=== PATIENT | female | born 1970 | race Caucasian/White ===

== ENCOUNTER 2017-12-27 08:56 | Emergency (ER) | payer BC ==
[2017-12-27 09:00] VITALS: BP 144/92; PULSE 86; RESP 18; TEMP 98
--- NOTE | 2017-12-27 09:24 | XR ---
EXAMINATION TYPE: XR forearm RT , 2 VIEWS DATE OF EXAM ORDERED: 12/27/2017 HISTORY: Pain. COMPARISON: None. FINDINGS: No long bone fracture is seen. There is an ossific density just posterior to the mid carpa l row on the lateral projection. IMPRESSION: 1. NO ACUTE LUNG BONY INJURY. 2. PLEASE CORRELATE CLINICALLY TO EXCLUDE TRIQUETRAL FRACTURE.
--- NOTE | 2017-12-27 09:40 | ED ---
Upper Extremity HPI - General Chief Complaint: Extremity Injury, Upper Stated Complaint: Right Arm and Wrist Injury Time Seen by Provider: 12/27/17 09:02 Source: patient, RN notes reviewed Mode of arrival: ambulatory Limitations: no limitations - History of Present Illness Initial Comments: 47-year-old female presents emergency Department with a right forearm pain [place]. Patient states that she slipped on oil. Patient denies any head injury no loss conscious. Patient denies any prior injuries to her right hand or wrist. Patient states that she is right-hand dominant. Patient has pain with movement at this time. - Related Data Allergies Allergy/AdvReac Type Severity Reaction Status Date / Time Milk Containing Products Allergy Unknown Verified 12/27/17 09:00 [Dairy] Review of Systems ROS Statement: Those systems with pertinent positive or pertinent negative responses have been documented in the HPI. ROS Other: All systems not noted in ROS Statement are negative. Past Medical History Past Medical History: No Reported History History of Any Multi-Drug Resistant Organisms: None Reported Past Surgical History: Section, Tonsillectomy, Tubal Ligation Past Psychological History: No Psychological Hx Reported Smoking Status: Current every day smoker Past Alcohol Use History: Occasional Past Drug Use History: None Reported General Exam Limitations: no limitations General appearance: alert, in no apparent distress Head exam: Present: atraumatic, normocephalic, normal inspection Respiratory exam: Present: normal lung sounds bilaterally. Absent: respiratory distress, wheezes, rales, rhonchi, stridor Cardiovascular Exam: Present: regular rate, normal rhythm, normal heart sounds. Absent: systolic murmur, diastolic murmur, rubs, gallop, clicks Extremities exam: Present: other (Right arm there is tenderness in the right wrist the right elbow patient has pain with range of motion neurovascular intact no obvious deformity) Skin exam: Present: warm, dry, intact, normal color. Absent: rash Course Vital Signs 12/27/17 08:57 Temperature 98.0 F Pulse Rate 86 Respiratory 18 Rate Blood Pressure 144/92 O2 Sat by Pulse 98 Oximetry Procedures - Orthopedic Splinting/Casting Injury #1 Side: right Upper Extremity Injury Location: short arm, wrist Upper Extremity Immobilizer: volar splint, synthetic pre-padded splint Additional Comments: Neurovascular intact before and after Medical Decision Making - Medical Decision Making 47-year-old female presented emergency from for right arm injury. Patient slipped and fell she has possible right. Carpal fracture. She was splinted and follow up with orthopedics. Disposition Clinical Impression: Wrist fracture, right Disposition: HOME SELF-CARE Condition: Stable Instructions: Arm Fracture in Adults (ED) Additional Instructions: Please return to the Emergency Department if symptoms worsen or any other concerns. Referrals: Bandar Burgos MD [Primary Care Provider] - 1-2 days Juventino Moreira MD [Medical Doctor] - 1-2 days Time of Disposition: 09:39
== END 2017-12-27 09:56 | disposition home or self-care (01) ==
LOC: EC 08:56
DX: S62.101A Fracture of unspecified carpal bone, right wrist, initial encounter for closed fracture (principal); F17.200 Nicotine dependence, unspecified, uncomplicated; Z91.011 Allergy to milk products; W01.0XXA Fall on same level from slipping, tripping and stumbling without subsequent striking against object, initial encounter; Y93.54 Activity, bowling
CPT/HCPCS: 29125; 99283

== ENCOUNTER 2020-04-11 18:56 | Observation (INO) | payer BC ==
[2020-04-11] MEDS ORDERED: ASPIRIN 81 MG PO STA (19:16)
[2020-04-11] MEDS ORDERED: ONDANSETRON 4 MG/2 ML VIAL IVP STA (19:16)
--- NOTE | 2020-04-11 19:46 | ED ---
General Adult HPI - General Chief complaint: Dizziness Stated complaint: Chest pain Time Seen by Provider: 04/11/20 19:02 Source: patient Mode of arrival: wheelchair Limitations: no limitations - History of Present Illness Initial comments: 50-year-old female patient presents to the emergency department today for evaluation of dizziness, chest pain, and nausea. Patient states she's had symptoms since last evening. She did have one episode of vomiting yesterday. States she went to urgent care to get checked out today and they recommended she come in for further evaluation. Patient states that she does feel short of breath at rest. States whenever she takes a big deep breath she feels a sharp cramping pain to the left side of her chest. She denies any sweats with this. She does smoke cigarettes. Denies any history of high blood pressure, diabetes, high cholesterol. Denies family history of cardiac disease. She denies any abdominal pain, constipation, or diarrhea. Denies fever or chills. States she is experiencing nasal congestion and postnasal drip. Patient denies any recent rash, diarrhea, constipation, back pain, numbness, tingling, hematuria, dysuria, urinary urgency, urinary frequency, headache, visual changes, or any other complaints. - Related Data Home Medications Medication Instructions Recorded Confirmed No Known Home Medications 04/11/20 04/11/20 Allergies Allergy/AdvReac Type Severity Reaction Status Date / Time Milk Containing Products Allergy Unknown Verified 04/11/20 21:34 [Dairy] Review of Systems ROS Statement: Those systems with pertinent positive or pertinent negative responses have been documented in the HPI. ROS Other: All systems not noted in ROS Statement are negative. Past Medical History Past Medical History: No Reported History History of Any Multi-Drug Resistant Organisms: None Reported Past Surgical History: Section, Tonsillectomy, Tubal Ligation Past Psychological History: No Psychological Hx Reported Smoking Status: Current every day smoker Past Alcohol Use History: Occasional Past Drug Use History: None Reported General Exam Limitations: no limitations General appearance: alert, in no apparent distress, other (Physical well- developed, well-nourished adult female patient in no acute distress. Vital signs upon presentation are temperature 98.9F, pulse 96, respirations 18, blood pressure 108/66, pulse ox 98% on room air.) Eye exam: Present: normal appearance, PERRL, EOMI. Absent: scleral icterus, conjunctival injection, nystagmus, periorbital swelling ENT exam: Present: normal exam, normal oropharynx, mucous membranes moist Respiratory exam: Present: normal lung sounds bilaterally. Absent: respiratory distress, wheezes, rales, rhonchi, stridor Cardiovascular Exam: Present: regular rate, normal rhythm, normal heart sounds. Absent: systolic murmur, diastolic murmur, rubs, gallop, clicks GI/Abdominal exam: Present: soft, normal bowel sounds. Absent: distended, tenderness, guarding, rebound, rigid Neurological exam: Present: alert, oriented X3, CN II-XII intact Psychiatric exam: Present: normal affect, normal mood Skin exam: Present: warm, dry, intact, normal color. Absent: rash Course Vital Signs 04/11/20 04/11/20 18:58 21:12 Temperature 98.9 F Pulse Rate 96 84 Respiratory 18 16 Rate Blood Pressure 108/66 140/86 O2 Sat by Pulse 98 99 Oximetry EKG Findings - EKG Comments: EKG Findings:: EKG obtained in 1914 shows normal sinus rhythm with a ventricular rate of 83, PA interval 136, QRS duration 86, QT 386, QTc 453. No evidence of ST elevation or depression. Medical Decision Making - Medical Decision Making 50-year-old female patient presents to the emergency department today for evaluation of chest pain radiating down the left arm, shortness of breath, nausea, and dizziness. Physical examination reveal clear equal lung sounds. Pain is nonreproducible with palpation. EKG showed normal sinus rhythm. Initial troponin is negative. Patient will be admitted to the hospital for serial troponins, cardiac monitoring, and further evaluation by cardiology in the morning. She is agreeable this plan. - Lab Data Result diagrams: 04/11/20 19:49 04/11/20 19:49 Lab Results 04/11/20 04/11/20 04/11/20 Range/Units 19:49 19:49 19:49 WBC 12.8 H (3.8-10.6) k/uL RBC 5.43 H (3.80-5.40) m/uL Hgb 15.2 (11.4-16.0) gm/dL Hct 47.2 H (34.0-46.0) % MCV 86.9 (80.0-100.0) fL MCH 28.0 (25.0-35.0) pg MCHC 32.3 (31.0-37.0) g/dL RDW 14.0 (11.5-15.5) % Plt Count 294 (150-450) k/uL Neutrophils % 62 % Lymphocytes % 27 % Monocytes % 5 % Eosinophils % 4 % Basophils % 1 % Neutrophils # 7.9 H (1.3-7.7) k/uL Lymphocytes # 3.4 (1.0-4.8) k/uL Monocytes # 0.7 (0-1.0) k/uL Eosinophils # 0.5 (0-0.7) k/uL Basophils # 0.1 (0-0.2) k/uL PT 9.5 (9.0-12.0) sec INR 0.9 (<1.2) APTT 23.2 (22.0-30.0) sec D-Dimer 0.29 (<0.60) mg/L FEU Sodium 134 L (137-145) mmol/L Potassium 4.3 (3.5-5.1) mmol/L Chloride 107 (98-107) mmol/L Carbon Dioxide 20 L (22-30) mmol/L Anion Gap 7 mmol/L BUN 18 H (7-17) mg/dL Creatinine 0.97 (0.52-1.04) mg/dL Est GFR (CKD-EPI)AfAm 80 (>60 ml/min/1.73 sqM) Est GFR (CKD-EPI)NonAf 70 (>60 ml/min/1.73 sqM) Glucose 105 H (74-99) mg/dL Calcium 9.2 (8.4-10.2) mg/dL Magnesium 2.0 (1.6-2.3) mg/dL Total Bilirubin 0.4 (0.2-1.3) mg/dL AST 23 (14-36) U/L ALT 12 (4-34) U/L Alkaline Phosphatase 61 (38-126) U/L Troponin I (0.000-0.034) ng/mL NT-Pro-B Natriuret Pep pg/mL Total Protein 6.7 (6.3-8.2) g/dL Albumin 4.1 (3.5-5.0) g/dL Lipase 198 (23-300) U/L 04/11/20 04/11/20 Range/Units 19:49 19:49 WBC (3.8-10.6) k/uL RBC (3.80-5.40) m/uL Hgb (11.4-16.0) gm/dL Hct (34.0-46.0) % MCV (80.0-100.0) fL MCH (25.0-35.0) pg MCHC (31.0-37.0) g/dL RDW (11.5-15.5) % Plt Count (150-450) k/uL Neutrophils % % Lymphocytes % % Monocytes % % Eosinophils % % Basophils % % Neutrophils # (1.3-7.7) k/uL Lymphocytes # (1.0-4.8) k/uL Monocytes # (0-1.0) k/uL Eosinophils # (0-0.7) k/uL Basophils # (0-0.2) k/uL PT (9.0-12.0) sec INR (<1.2) APTT (22.0-30.0) sec D-Dimer (<0.60) mg/L FEU Sodium (137-145) mmol/L Potassium (3.5-5.1) mmol/L Chloride (98-107) mmol/L Carbon Dioxide (22-30) mmol/L Anion Gap mmol/L BUN (7-17) mg/dL Creatinine (0.52-1.04) mg/dL Est GFR (CKD-EPI)AfAm (>60 ml/min/1.73 sqM) Est GFR (CKD-EPI)NonAf (>60 ml/min/1.73 sqM) Glucose (74-99) mg/dL Calcium (8.4-10.2) mg/dL Magnesium (1.6-2.3) mg/dL Total Bilirubin (0.2-1.3) mg/dL AST (14-36) U/L ALT (4-34) U/L Alkaline Phosphatase (38-126) U/L Troponin I <0.012 (0.000-0.034) ng/mL NT-Pro-B Natriuret Pep 23 pg/mL Total Protein (6.3-8.2) g/dL Albumin (3.5-5.0) g/dL Lipase (23-300) U/L - Radiology Data Radiology results: report reviewed, image reviewed Two-view x-ray of the chest is obtained. Report was reviewed in its entirety. Impression by Dr. Guillen shows no acute cardiopulmonary process. Disposition Clinical Impression: Chest pain, Dyspnea Disposition: ADMITTED IP TO THIS [facility] Condition: Serious Decision to Admit Reason: Admit from EC Decision Date: 04/11/20 Decision Time: 21:08
[2020-04-11 20:04] LABS: Basophils # (A) 0.1 k/uL (0-0.2); Basophils % (A) 1 %; Eosinophils # (A) 0.5 k/uL (0-0.7); Eosinophils % (A) 4 %; HCT 47.2 % (34.0-46.0); HGB 15.2 gm/dL (11.4-16.0); Lymphocytes # (A) 3.4 k/uL (1.0-4.8); Lymphocytes % (A) 27 %; MCHC 32.3 g/dL (31.0-37.0); MCV 86.9 fL (80.0-100.0); Mean Platelet Volume 7.4; Monocytes # (A) 0.7 k/uL (0-1.0); Monocytes % (A) 5 %; Neutrophils # (A) 7.9 k/uL (1.3-7.7); Neutrophils % (A) 62 %; Platelet Count 294 k/uL (150-450); RBC 5.43 m/uL (3.80-5.40); WBC 12.8 k/uL (3.8-10.6)
--- NOTE | 2020-04-11 20:10 | XR ---
EXAMINATION TYPE: XR chest 2V DATE OF EXAM: 04/11/2020 COMPARISON: NONE HISTORY: Chest pain TECHNIQUE: Frontal and lateral views of the chest are obtained. FINDINGS: There is no focal air space opacity. No evidence for pneumothorax. No pleural effusion. The cardiac silhouette size is within normal limits. The osseous structures are grossly intact. IMPRESSION: 1. No acute cardiopulmonary process.
[2020-04-11 20:12] LABS: Albumin 4.1 g/dL (3.5-5.0); Calcium 9.2 mg/dL (8.4-10.2); Potassium 4.3 mmol/L (3.5-5.1); Total Bilirubin 0.4 mg/dL (0.2-1.3); Total Protein 6.7 g/dL (6.3-8.2)
[2020-04-11 20:22] LABS: D-Dimer 0.29 mg/L FEU (<0.60); INR 0.9 (<1.2); Partial Thromboplastin Time 23.2 sec (22.0-30.0); Prothrombin Time 9.5 sec (9.0-12.0)
[2020-04-11] MEDS ORDERED: NALOXONE 0.4 MG/ML 1 ML VIAL IV PRN (21:01)
[2020-04-12 02:29] VITALS: TEMP 98.2
[2020-04-12 08:37] VITALS: BP 111/71; PULSE 95; RESP 14
[2020-04-12] MEDS ORDERED: ASPIRIN 325 MG TAB PO SCH (09:00)
--- NOTE | 2020-04-12 09:18 | CONS ---
CONSULTATION Mrs. Frazier is a 50-year-old female with no prior cardiac history, does not follow with a physician, who presented with symptoms of chest discomfort. The discomfort started on the left side of the chest radiating to the middle of the chest, into the left arm and had some respirophasic pattern to it and with that she felt dyspneic. She came into the emergency room and was subsequently admitted. The patient has no prior cardiac history. She is average in exercise tolerance. Has no exertional chest pain or significant dyspnea. She denies any dizziness or palpitation. She has no PND, orthopnea, or peripheral edema. She has no history of hypertension, hyperlipidemia, or documented diabetes. She smokes about a half a pack a day. MEDICATION: At home are none. REVIEW OF SYSTEMS: RESPIRATORY SYSTEM: She has occasional cough and wheezing. No recent fever. GI SYSTEM: She had vomiting on Thursday. No GI bleeding. SYSTEM: No dysuria or hematuria. NERVOUS SYSTEM: No stroke or seizure. PHYSICAL EXAMINATION: She is a 50-year-old female, alert, oriented, in no apparent distress. Blood pressure 133/70 with a heart in 90s. HEAD: Normocephalic. Eyes sclerae nonicteric. NECK: Good upstroke, no bruit, no jugular venous distention. LUNGS: Clear to auscultation. HEART: Regular rate and rhythm S1, S2. No S3. No S4. No murmur or rub. ABDOMEN: Soft, nontender, positive bowel sounds, no organomegaly. EXTREMITIES: No edema. Intact pulses. X-RAY: EKG sinus mechanism, normal axis and intervals. Normal echocardiogram. Chest x-ray shows no acute infiltrate. LABORATORY DATA: Her troponin less than 0.012 for 3 samples. BUN and creatinine 18 and 0.97. Potassium 4.3, hemoglobin of 15.2, white blood cell of 12.8. IMPRESSION: 1. Chest discomfort has atypical features for ischemic heart disease, probably noncardiac in etiology. 2. History of chronic tobacco use. RECOMMENDATION: I would recommend to proceed with an echocardiogram and a stress echocardiogram to assess her status and guide her treatment. Depending on the results of testing, further recommendation will be made. Thank you for this consult. We will follow with you. MMODL / IJN: [id number] /
--- NOTE | 2020-04-12 11:42 | ECHOF ---
Referral Reason:Chest pain; shortness of breath MEASUREMENTS -------- HEIGHT: 170.2 cm WEIGHT: 97.5 kg BP: 133/77 RVIDd: 3.2 cm (< 3.3) IVSd: 1.3 cm (0.6 - 1.1) LVIDd: 4.2 cm (3.9 - 5.3) LVPWd: 1.2 cm (0.6 - 1.1) IVSs: 1.8 cm LVIDs: 2.2 cm LVPWs: 1.6 cm LA Diam: 3.4 cm (2.7 - 3.8) LAESV Index (A-L): 25.12 ml/m Ao Diam: 3.0 cm (2.0 - 3.7) AV Cusp: 1.8 cm (1.5 - 2.6) MV EXCURSION: 19.436 mm (> 18.000) MV EF SLOPE: 60 mm/s (70 - 150) EPSS: 1.4 cm MV E Berhane: 0.91 m/s MV DecT: 207 ms MV A Berhane: 0.74 m/s MV E/A Ratio: 1.23 RAP: 5.00 mmHg RVSP: 23.64 mmHg FINDINGS -------- Sinus rhythm. This was a technically adequate study. The left ventricular size is normal. There is mild concentric left ventricular hypertrophy. Overa ll left ventricular systolic function is normal with, an EF between 55 - 60 %. The right ventricle is normal in size. Normal LA size by volume 22+/-6 ml/m2. The right atrial size is normal. Interatrial and interventricular septum intact. The aortic valve is trileaflet, and appears structurally normal. No aortic stenosis or regurgitation. The mitral valve is normal. There is trace mitral regurgitation. Mild tricuspid regurgitation present. Right ventricular systolic pressure is normal at < 35 mmHg. The pulmonic valve was not well visualized. There is no pulmonic regurgitation present. The aortic root size is normal. Normal inferior vena cava with normal inspiratory collapse consistent with estimated right atrial pre ssure of 5 mmHg. There is no pericardial effusion. CONCLUSIONS -------- 1. There is mild concentric left ventricular hypertrophy. 2. Overall left ventricular systolic function is normal with, an EF between 55 - 60 %. 3. Normal LA size by volume 22+/-6 ml/m2. 4. The aortic valve is trileaflet, and appears structurally normal. No aortic stenosis or regurgitati on. 5. There is trace mitral regurgitation. 6. Mild tricuspid regurgitation present. 7. There is no pericardial effusion. PLANT ANATOMY TEACHER: Honey Low RDCS
[2020-04-12 13:07] LABS: HCT 44.8 % (34.0-46.0); HGB 14.5 gm/dL (11.4-16.0); MCH 28.1 pg (25.0-35.0); MCHC 32.3 g/dL (31.0-37.0); Mean Platelet Volume 7.4; Platelet Count 270 k/uL (150-450); RBC 5.14 m/uL (3.80-5.40); RDW 14.1 % (11.5-15.5); WBC 10.9 k/uL (3.8-10.6)
--- NOTE | 2020-04-12 13:18 | ECHOS ---
STRESS ECHOCARDIOGRAM AGE: 50 SEX: F HT: 67 WT: 215 PROTOCOL: Stress Echo STAGE: 4 DURATION OF EXERCISE: 10.7 HEART RATE REST: 70 BLOOD PRESSURE REST: 82/51 MAXIMUM HEART RATE ACHIEVED: 162 MAXIMUM BLOOD PRESSURE: 189/40 85% MPHR: 146 100% MPHR: 172 METS: 10.7 INDICATIONS: CLINICAL INFORMATION: Baseline rhythm is a sinus mechanism, rate of 70, normal axis and intervals. Normal electrocardiogram. Baseline blood pressure 82/51 mmHg. The patient exercised on a Leonard protocol for 9 minute 34 seconds achieving peak rate of 162 beats per minute which is equal to 94% of maximum predicted heart rate. Peak blood pressure 189/40 mmHg. Test was terminated due to significant fatigue. The patient had shoulder discomfort. Electrocardiograph monitoring revealed no evidence of diagnostic ischemic ST deviation. FINDINGS: Baseline echocardiogram revealed normal wall thickness and motion. At peak exercise, there was normal wall motion augmentation with no hypokinesis or dyskinesis. CONCLUSION: 1. Average exercise tolerance with normal electrocardiographic response to exercise. 2. Shoulder discomfort of unclear etiology. 3. Normal stress echocardiogram with no evidence of stress induced ischemia. MMODL / IJN: [id number] /
--- NOTE | 2020-04-12 13:19 | P.HPIM ---
History of Present Illness Please consider this note as combined H&P and discharge summary Diagnoses: Chest pain, cardiac causes has been ruled out with negative stress test. Negative d-dimer. Resolved Nicotine dependence Mild leukocytosis, mostly reactive, trending down, no signs symptoms of infection. No need for antibiotics Hospital course This is a pleasant 50 years old female with no significant past medical history.SHe does not follow with PCP. Presents because of chest pain. This is a patient started having left arm pain associated with left-sided chest pain below her left breast, was significantly severe as per patient associated with some dyspnea felt like current with no associated nausea vomiting or sweating. The chest. Discontinue so this morning and she has some dull mild ache in her left arm with no restriction of movement, no muscular weakness or numbness. No change in urine or bowel habits. No fever. No coughing. No dizziness and gait is normal she smokes about half pack per day, no alcohol or illicit drugs. Patient is counseled about quitting smoking and she does not want to Vital signs stable. Labs showing mild leukocytosis of 12.8 K, risks of CBC and BMP is unremarkable, d-dimer is negative at 0.09. Serial troponins are negative. Less than 0.012. Echocardiogram showed ejection fraction of 55-60% with mild LVH and no significant myocardial of valve DISEASE. Chest x-ray: No acute process Topper Press Operator evaluated the patient and recommended a stress echo which is negative as per primary results per costume seamstress. Patient chest pain has resolved, she denies any other symptoms, no dyspnea, nausea vomiting, no change in urine or bowel habits, no abdominal pain, no fever Patient is cleared for discharge by costume seamstress Problems and management plan were discussed with the patient and he verbalized understanding and acceptance Patient was found stable and can be discharged home however he needs follow-up as an outpatient. Patient was instructed to follow up with PCP within one week and patient agrees. Her sister recommended Dr. Durant for her to follow up with as her new primary care doctor, patient wants to Make her own appointment within 1 week. Also patient was instructed to follow up with costume seamstress Dr. Alvarado in 2 weeks and she wants to make her on appointment as well Review of systems CONSTITUTIONAL: No fever, no malaise, no fatigue. HEENT: No recent visual problems or hearing problems. Denied any sore throat. CARDIOVASCULAR: No orthopnea, PND, no palpitations, no syncope. PULMONARY: No shortness of breath, no cough, no hemoptysis. GASTROINTESTINAL: No diarrhea, no nausea, no vomiting, no abdominal pain. Normoactive bowel sounds. NEUROLOGICAL: No headaches, no weakness, no numbness. HEMATOLOGICAL: Denies any bleeding or petechiae. GENITOURINARY: Denies any burning micturition, frequency, or urgency. MUSCULOSKELETAL/RHEUMATOLOGICAL: Denies any joint pain, swelling, or any muscle pain. ENDOCRINE: Denies any polyuria or polydipsia. Physical exam Gen: patient is a AAOx3, no distress CVS: S1-S2, RRR, no murmur Lungs: B/L CTA, no wheezing Abdomen: soft, no distention, no tenderness, positive bowel sounds Extremity: no leg edema or induration Time spent more than 35 minutes Past Medical History Past Medical History: No Reported History History of Any Multi-Drug Resistant Organisms: None Reported Past Surgical History: Section, Tonsillectomy, Tubal Ligation Past Anesthesia/Blood Transfusion Reactions: No Reported Reaction Past Psychological History: No Psychological Hx Reported Smoking Status: Current every day smoker Past Alcohol Use History: Occasional Past Drug Use History: None Reported - Past Family History Mother Family Medical History: Hypertension, Memory Impairment Father Family Medical History: Cancer Additional Family Medical History / Comment(s): of lung cancer at the age of 60 Medications and Allergies Home Medications Medication Instructions Recorded Confirmed Type No Known Home Medications 04/11/20 04/11/20 History Allergies Allergy/AdvReac Type Severity Reaction Status Date / Time Milk Containing Products Allergy Unknown Verified 04/11/20 21:34 [Dairy] Physical Exam Vitals: Vital Signs Temp Pulse Pulse Resp BP BP Pulse Ox 04/12/20 08:39 95 14 04/12/20 08:15 98.2 F 95 14 111/71 95 04/12/20 03:00 98.2 F 93 18 133/77 95 04/12/20 00:00 98.2 F 95 18 117/71 95 04/11/20 21:12 84 16 140/86 99 04/11/20 18:58 98.9 F 96 18 108/66 98 Intake and Output 04/11/20 04/12/20 04/12/20 22:59 06:59 14:59 Other: Voiding Method Toilet Toilet Weight 97.522 kg 97.522 kg GENERAL: The patient is alert and oriented x3, not in any acute distress. Well developed, well nourished. HEENT: Pupils are round and equally reacting to light. EOMI. No scleral icterus. No conjunctival pallor. Normocephalic, atraumatic. No pharyngeal erythema. No thyromegaly. CARDIOVASCULAR: S1 and S2 present. No murmurs, rubs, or gallops. PULMONARY: Chest is clear to auscultation, no wheezing or crackles. ABDOMEN: Soft, nontender, nondistended, normoactive bowel sounds. No palpable organomegaly. MUSCULOSKELETAL: No joint swelling or deformity. EXTREMITIES: No cyanosis, clubbing, or pedal edema. NEUROLOGICAL: Gross neurological examination did not reveal any focal deficits. SKIN: No rashes. No petechiae Results CBC & Chem 7: 04/12/20 12:44 04/11/20 19:49 Labs: Abnormal Lab Results - Last 24 Hours (Table) 04/11/20 04/11/20 Range/Units 19:49 19:49 WBC 12.8 H (3.8-10.6) k/uL RBC 5.43 H (3.80-5.40) m/uL Hct 47.2 H (34.0-46.0) % Neutrophils # 7.9 H (1.3-7.7) k/uL Sodium 134 L (137-145) mmol/L Carbon Dioxide 20 L (22-30) mmol/L BUN 18 H (7-17) mg/dL Glucose 105 H (74-99) mg/dL Thrombosis Risk Factor Assmnt - Choose All That Apply Any of the Below Risk Factors Present?: Yes Each Factor Represents 1 point: Age 41-60 years Thrombosis Risk Factor Assessment Total Risk Factor Score: 1 Thrombosis Risk Factor Assessment Level: Low Risk
== END 2020-04-12 14:21 | disposition home or self-care (01) ==
LOC: EC 18:56 → 3NCARDOBS 20:46
PROVIDERS: ADMIT Hospitalist; ATTEND Hospitalist
DX: R07.89 Other chest pain (principal); Z91.011 Allergy to milk products; F17.210 Nicotine dependence, cigarettes, uncomplicated; Z80.1 Family history of malignant neoplasm of trachea, bronchus and lung; Z82.49 Family history of ischemic heart disease and other diseases of the circulatory system; D72.829 Elevated white blood cell count, unspecified
CPT/HCPCS: 96374; 99285; 36415; 93005; 93306; 93351; 85379; 83880; 80053; 83690; 83735; 84484 ×2; 85025; 85027; 85610; 85730; 71046; G0378 ×2; J2405

== ENCOUNTER → 2024-06-29 | Outpatient (CLI) | payer BC ==
--- NOTE | 2024-06-29 13:33 | CTL ---
EXAMINATION TYPE: CT Low Dose Lung DATE OF EXAM: 06/29/2024 9:40 AM CLINICAL INDICATION: Female, 54 years old with history of Z12.31 Screening mammogram; Z12.2 Screening ; Screening for lung cancer, current smoker , history of tobacco use. COMPARISON: Chest radiograph 04/11/2020 TECHNIQUE: Multiple axial non-contrast scans were obtained from approximately the lung apices through the upper abdomen. Coronal and sagittal reformatted images were obtained. Low dose technique was uti lized. MIP were created on a separate workstation and submitted for review. CT DLP: 124.90 mGycm, Automated exposure control for dose reduction was used. CT Contrast: Contrast used: None Oral contrast used: None FINDINGS: ======== Lack of intravenous contrast and low dose technique limits the evaluation of the vascular and soft ti ssue structures. LUNGS: No evidence of pulmonary fibrosis. No evidence of focal consolidation, pneumothorax or pleural effusion. Centrilobular emphysema changes. Nodules: RUL: 3 mm series 5 image 24 RML: Streaky atelectasis. RLL: Streaky atelectasis in the lung bases. REHAN: 2 mm series 3 image 31r 3 mm image 45 2 mm image 95 LLL: None. AIRWAY: Patent and unremarkable. HEART: Size within normal limits. MEDIASTINUM: No gross evidence of adenopathy. VASCULATURE: No aortic aneurysm. MUSCULOSKELETAL: No acute osseous abnormalities SOFT TISSUES/LYMPH NODES: Unremarkable. LOWER NECK: No significant findings. UPPER ABDOMEN: No significant findings. IMPRESSION: 1. No clinically significant pulmonary nodules. 2. Mild emphysema. CT LUNG RAD AND CT CHEST RECOMMENDATION: Lung-Rad 2 Benign Appearance or Behavior: Continue annual sc reening with LDCT in 12 months. S Modifier (other clinically significant findings): None Recommend smoking cessation (if current smoker), or continuation of smoking cessation (if prior smoke r). Annual screening for lung cancer with low-dose computed tomography is recommended in adults ages 55 to 77 years who have a 30 pack-year smoking history and currently smoke or have quit within the pa st 15 years. Screening should be discontinued once a person has not smoked for 15 years or develops a health problem that substantially limits life expectancy or the ability or willingness to have curat carolee lung surgery. Lung rads 2021 [email or web address] [facility], , 06/29/2024 1:30 PM
--- NOTE | 2024-06-30 13:34 | MM ---
Reason for Exam: Screening (asymptomatic). Baseline mammogram. Patient History: Menarche at age 11. First Full-Term at age 20. Postmenopausal. Risk Values: Lisa 5 year model risk: 0.8%. NCI Lifetime model risk: 6.9%. Prior Study Comparison: Patient's first Mammogram. Tissue Density: The breasts are almost entirely fatty. Findings: Analyzed By CAD. Right breast: There is no suspicious group of microcalcifications or new suspicious mass. Left breast: There is no suspicious group of microcalcifications or new suspicious mass. Overall Assessment: Negative, BI-RAD 1 Management: Screening Mammogram of both breasts in [address] [facility] will attempt to contact patient to return for supplemental views and ultrasound if indicated. Patient should continue monthly self-breast exams. A clinical breast exam by your physician is recommended on an annual basis. This exam should not preclude additional follow-up of suspicious palpable abnormalities. Note on Lisa scores and lifetime risk: 1. A Lisa score greater than 3% is considered moderate risk. If this is the case, consider specialist referral to assess eligibility for a risk reducing agent. 2. If overall lifetime risk for the development of breast cancer is 20% or higher, the patient may qualify for future screening with alternating mammogram and breast MRI. [facility], , 06/30/2024 1:30 PM. Electronically signed and approved by: Mack Tam DO
== END | disposition home or self-care (01) ==
LOC: RADMAMWWP 08:01
PROVIDERS: ATTEND Family Medicine
DX: Z12.31 Encounter for screening mammogram for malignant neoplasm of breast (principal); Z12.2 Encounter for screening for malignant neoplasm of respiratory organs; J43.2 Centrilobular emphysema; F17.210 Nicotine dependence, cigarettes, uncomplicated; Z78.0 Asymptomatic menopausal state
CPT/HCPCS: 71271; 77067

== ENCOUNTER 2024-10-21 09:26 | Day surgery (SDC) | payer BC ==
[~2024-10-21 09:26] MED LIST: LACTATED RINGERS 1,000 ML IV SCH
[2024-10-21 10:07] VITALS: RESP 16; TEMP 96.9
[2024-10-21] MEDS: IV FLUID CONTINUATION 1,000 ML IV ONE (10:07)
[2024-10-21] MEDS ORDERED: LIDOCAINE 1% INJ 10MG/ML (20 ML MDV) ONE (10:58)
[2024-10-21] MEDS ORDERED: PROPOFOL 10 MG/ML 20 ML VIAL IV ONE (10:58)
--- NOTE | 2024-10-21 11:26 | P.PCN ---
Date of Procedure: 10/21/24 Procedure(s) Performed: BRIEF HISTORY: Patient is a 54-year-old pleasant white female scheduled for an elective colonoscopy as a part of screening for colon cancer. PROCEDURE PERFORMED: Colonoscopy with snare polypectomy. PREOPERATIVE DIAGNOSIS: Screening for colon cancer. IV sedation per Anesthesia. PROCEDURE: After informed consent was obtained, the patient, was brought into the endoscopy unit. IV sedation was administered by Anesthesia under continuous monitoring. Digital rectal examination was normal. Initially the Olympus CF-160 flexible video colonoscope was then inserted in the rectum, gradually advanced into the cecum without any difficulty. Careful examination was performed as the scope was gradually being withdrawn. Ileocecal valve and the appendiceal orifice were visualized and appeared normal. Prep was excellent. Mucosa of the cecum, had 2 polyps measuring 1 cm and 2 cm broad-based removed by snare polypectomy. Rest of the ascending colon, transverse colon, normal. The descending colon there was a 3 mm and 7 mm polyp removed by cold snare polypectomy. Rest of the descending colon, sigmoid colon, and rectum appeared normal. Retroflexion was performed in the rectum and no lesions were seen. The patient tolerated the procedure well. IMPRESSION: 1 cm and 2 cm broad-based cecal polyp status post snare polypectomy 3 mm and 7 mm descending colon polyp status post snare polypectomy RECOMMENDATIONS: Findings of this examination were discussed with the patient as well as her family. She was advised to follow with the biopsy results. If the biopsy reveals adenoma she can have a repeat colonoscopy in 3 years..
[2024-10-21 11:46] VITALS: PULSE 70
[2024-10-21 11:47] VITALS: BP 113/73
== END 2024-10-21 12:02 | disposition home or self-care (01) ==
LOC: ORWHC2ENDO 09:26
PROVIDERS: ATTEND Internal Medicine Gastroenterology
DX: Z12.11 Encounter for screening for malignant neoplasm of colon (principal); K63.5 Polyp of colon; D12.0 Benign neoplasm of cecum
CPT/HCPCS: 45385; J2003; J2704; 88305